=== PATIENT | male | born 1955 | race Caucasian/White ===

== ENCOUNTER 2016-12-07 14:25 | Day surgery (SDC) | payer OTHER ==
[~2016-12-07 14:25] MED LIST: DIPRIVAN 200 MG/20 ML IV ONE; Kenalog-40 IM ONE; Lactated Ringers IV ONE; Sensorcaine 0.25% 10 ML IJ ONE
--- NOTE | 2016-12-07 16:52 | XRAY ---
Indication: Left L3-S1 MBB. Intraoperative fluoroscopy was provided for 10 seconds. Single digital spot image submitted for interpretation demonstrates 4 posterior spinal needles with the tips projecting adjacent to the left L3-S1 superior facets. Correlate with intraoperative findings/report.
--- NOTE | 2016-12-07 16:55 | XRAY ---
10 seconds of fluoroscopy was used in surgery for a left MBB L3-S1.
== END 2016-12-07 16:20 | disposition home or self-care (01) ==
LOC: SDC-PAIN 14:25
PROVIDERS: ATTEND Pain Medicine Interventional Pain Medicine
DX: M54.5 Low back pain (principal); M46.1 Sacroiliitis, not elsewhere classified; M25.551 Pain in right hip; M51.36 Other intervertebral disc degeneration, lumbar region
CPT/HCPCS: 64493; 64494; 64495; 72020; 77003; J2704; J3301

== ENCOUNTER 2017-02-15 12:10 | Day surgery (SDC) | payer OTHER ==
[~2017-02-15 12:10] MED LIST changes: +Lactated Ringers 1,000 ML IV ONE; -Lactated Ringers IV ONE
--- NOTE | 2017-02-15 17:19 | XRAY ---
9 seconds fluoroscopy time in surgery for left side L2-5 MBB.
--- NOTE | 2017-02-17 02:40 | XRAY ---
Indication: Left L2-L5 MBB. Intraoperative fluoroscopy was provided for 9 seconds. Single digital spot image submitted for interpretation demonstrates 4 posterior spinal needles with the tips projected over the expected course of the left L2-L5 nerve roots. Correlate with intraoperative findings/report.
== END 2017-02-15 13:55 | disposition home or self-care (01) ==
LOC: SDC-PAIN 12:10
PROVIDERS: ATTEND Pain Medicine Interventional Pain Medicine
DX: M54.5 Low back pain (principal); M46.1 Sacroiliitis, not elsewhere classified; M47.816 Spondylosis without myelopathy or radiculopathy, lumbar region; M25.551 Pain in right hip
CPT/HCPCS: 64493; 64494; 64495; 72020; 77003; J2704; J3301

== ENCOUNTER 2022-03-23 11:47 | Day surgery (SDC) | payer OTHER ==
[2022-03-23] MEDS ORDERED: Marcaine Mpf 0.5% Vial 30 Ml IJ ONE (11:48)
[2022-03-23] MEDS ORDERED: XYLOCAINE-MPF 1% 5ML SDV IJ ONE (11:48)
[2022-03-23] MEDS ORDERED: Depo-Medrol 40 MG/ML IM ONE (11:48)
[2022-03-23] MEDS ORDERED: DIPRIVAN 200 MG/20 ML IV ONE (13:41)
[2022-03-23] MEDS ORDERED: Lactated Ringers 1,000 ML IV ONE (14:25)
--- NOTE | 2022-03-23 14:52 | XRAY ---
Indication: Left L4-S1 RFA. Intraoperative fluoroscopy provided for 27 seconds. 3 digital spot image submitted for interpretation demonstrates posterior needle tips projecting over the left L4-S1 nerve roots. Correlate with intraoperative findings/report.
--- NOTE | 2022-03-23 14:54 | XRAY ---
27 seconds of fluoroscopy was used in surgery for a left L4-S1 RFA.
== END 2022-03-23 14:18 | disposition home or self-care (01) ==
LOC: SDC-PAIN 11:47
PROVIDERS: ATTEND Psychiatry & Neurology Pain Medicine
DX: M47.816 Spondylosis without myelopathy or radiculopathy, lumbar region (principal); Z79.899 Other long term (current) drug therapy
CPT/HCPCS: 64635; 64636; 72100; 77002; J1030; J2704

== ENCOUNTER 2022-03-30 11:52 | Day surgery (SDC) | payer OTHER ==
[2022-03-30] MEDS ORDERED: XYLOCAINE-MPF 1% 5ML SDV IJ ONE (11:53)
[2022-03-30] MEDS ORDERED: Depo-Medrol 40 MG/ML IM ONE (11:53)
[2022-03-30] MEDS ORDERED: Marcaine Mpf 0.5% Vial 30 Ml IJ ONE (11:53)
[2022-03-30] MEDS ORDERED: DIPRIVAN 200 MG/20 ML IV ONE (14:20)
--- NOTE | 2022-03-30 15:17 | XRAY ---
Indication: Right L4-S1 RFA. Intraoperative fluoroscopy provided for 16 seconds. 3 digital spot image submitted for interpretation demonstrates posterior needle tips projecting over the expected right L4-S1 nerve roots. Correlate with intraoperative findings/report.
[2022-03-30] MEDS ORDERED: Lactated Ringers 1,000 ML IV ONE (16:27)
--- NOTE | 2022-03-30 16:35 | XRAY ---
16 seconds fluoroscopy time in surgery for right L4-S1 RFA.
== END 2022-03-30 14:50 | disposition home or self-care (01) ==
LOC: SDC-PAIN 11:52
PROVIDERS: ATTEND Psychiatry & Neurology Pain Medicine
DX: M47.816 Spondylosis without myelopathy or radiculopathy, lumbar region (principal); Z79.899 Other long term (current) drug therapy
CPT/HCPCS: 64635; 64636; 72100; 77002; J1030; J2704

== ENCOUNTER 2023-07-19 15:30 | Day surgery (SDC) | payer MEDICARE ==
[2023-07-19] MEDS ORDERED: Sodium Chloride 0.9(Preservative Free) 10 ML IJ ONE (15:31)
[2023-07-19] MEDS ORDERED: LIDOCAINE HCL 1% 50 MG/5 ML VL PF IJ ONE (15:31)
[2023-07-19] MEDS ORDERED: Decadron 4 MG INJ IV ONE (15:31)
[2023-07-19] MEDS ORDERED: MORPHINE SULFATE 2 MG INJ ONE (18:37)
[2023-07-19] MEDS ORDERED: Lactated Ringers 1,000 ML IV ONE (18:38)
--- NOTE | 2023-07-19 19:27 | XRAY ---
Indication: Cervical JO-ANN. Intraoperative fluoroscopy provided for 21 seconds. 2 digital spot image submitted for interpretation demonstrates posterior needle tip projecting just posterior to cervical thoracic junction. Small amount of contrast injected for needle tip placement. Correlate with intraoperative findings/report.
--- NOTE | 2023-07-20 09:43 | XRAY ---
21 seconds of fluoroscopy was used in surgery for a cervical JO-ANN.
== END 2023-07-19 18:59 | disposition home or self-care (01) ==
LOC: SDC-PAIN 15:30
PROVIDERS: ATTEND Psychiatry & Neurology Pain Medicine
DX: M54.12 Radiculopathy, cervical region (principal)
CPT/HCPCS: 62321; 72040; 77003; J1100; J2001; J2270; Q9966

== ENCOUNTER 2023-08-31 12:52 | Day surgery (SDC) | payer MEDICARE ==
[2023-08-31] MEDS ORDERED: Depo-Medrol 40 MG/ML IM ONE (12:53)
[2023-08-31] MEDS ORDERED: BUPIVACAINE 0.5% VIAL IJ ONE (12:53)
[2023-08-31] MEDS ORDERED: DIPRIVAN 200 MG/20 ML IV ONE (14:02)
--- NOTE | 2023-08-31 15:16 | XRAY ---
24 seconds of fluoroscopy was used in surgery for a right intra-articular shoulder and subacromial bursa injection.
[2023-08-31] MEDS ORDERED: Lactated Ringers 1,000 ML IV ONE (16:29)
--- NOTE | 2023-09-01 11:26 | XRAY ---
24 seconds of fluoroscopy was used in surgery for a right intra-articular shoulder and subacromial bursa injection.
== END 2023-08-31 14:26 | disposition home or self-care (01) ==
LOC: SDC-PAIN 12:52
PROVIDERS: ATTEND Psychiatry & Neurology Pain Medicine
DX: M75.51 Bursitis of right shoulder (principal); M19.011 Primary osteoarthritis, right shoulder; Z79.899 Other long term (current) drug therapy
CPT/HCPCS: 20610; 73030; 77002; J1030; J2704; Q9966

== ENCOUNTER 2023-10-18 11:38 | Day surgery (SDC) | payer MEDICARE ==
[2023-10-18] MEDS ORDERED: LIDOCAINE HCL 2% 100 MG/5 ML IJ ONE (11:39)
[2023-10-18] MEDS ORDERED: Lactated Ringers 1,000 ML IV ONE (13:52)
[2023-10-18] MEDS ORDERED: DIPRIVAN 200 MG/20 ML IV ONE (14:45)
--- NOTE | 2023-10-18 15:18 | XRAY ---
Indication: Right C2-C4 MBB. Intraoperative fluoroscopy provided 23 seconds. 2 digital spot image submitted for interpretation demonstrates posterior needle tips projecting over the expected right C2-C4 nerve roots. Correlate with intraoperative findings/report.
--- NOTE | 2023-10-18 16:42 | XRAY ---
23 seconds of fluoroscopy was used in surgery for a right C2-C4 MBB.
== END 2023-10-18 15:10 | disposition home or self-care (01) ==
LOC: SDC-PAIN 11:38
PROVIDERS: ATTEND Psychiatry & Neurology Pain Medicine
DX: M47.812 Spondylosis without myelopathy or radiculopathy, cervical region (principal)
CPT/HCPCS: 64490; 64491; 72040; 77002; J2704

== ENCOUNTER 2023-11-22 10:46 | Day surgery (SDC) | payer MEDICARE ==
[2023-11-22] MEDS ORDERED: BUPIVACAINE 0.5% VIAL IJ ONE (10:47)
[2023-11-22] MEDS ORDERED: DIPRIVAN 200 MG/20 ML IV ONE (12:15)
[2023-11-22] MEDS ORDERED: Versed 2 MG/2 ML Injection ONE (12:17)
[2023-11-22] MEDS ORDERED: Lactated Ringers 1,000 ML IV ONE (12:27)
--- NOTE | 2023-11-22 15:00 | XRAY ---
Indication: Right C2-C4 MBB. Intraoperative fluoroscopy provided for 13 seconds. 2 digital spot images submitted for interpretation demonstrates posterior needle tips projecting over the expected right C2-C4 nerve roots. Correlate with intraoperative findings/report.
--- NOTE | 2023-11-22 15:08 | XRAY ---
13 seconds of fluoroscopy was used in surgery for a right C2-C4 MBB.
== END 2023-11-22 12:50 | disposition home or self-care (01) ==
LOC: SDC-PAIN 10:46
PROVIDERS: ATTEND Psychiatry & Neurology Pain Medicine
DX: M47.812 Spondylosis without myelopathy or radiculopathy, cervical region (principal)
CPT/HCPCS: 64490; 64491; 72040; 77002; J2250; J2704

== ENCOUNTER 2023-12-20 13:38 | Day surgery (SDC) | payer MEDICARE ==
[2023-12-20] MEDS ORDERED: LIDOCAINE HCL 1% 50 MG/5 ML VL PF IJ ONE (13:39)
[2023-12-20] MEDS ORDERED: BUPIVACAINE 0.5% VIAL IJ ONE (13:39)
[2023-12-20] MEDS ORDERED: Decadron 4 MG INJ IV ONE (13:39)
[2023-12-20] MEDS ORDERED: Lactated Ringers 1,000 ML IV ONE (14:36)
[2023-12-20] MEDS ORDERED: DIPRIVAN 200 MG/20 ML IV ONE (14:45)
--- NOTE | 2023-12-20 17:35 | XRAY ---
Indication: Right C2-C4 RFA. Intraoperative fluoroscopy provided for 25 seconds. 3 digital spot image submitted for interpretation demonstrates posterior needle tips projecting over expected right C2-C4 nerve roots. Correlate with intraoperative findings/report.
--- NOTE | 2023-12-20 17:39 | XRAY ---
25 seconds of fluoroscopy was used in surgery for a right C2-C4 RFA.
== END 2023-12-20 15:25 ==
LOC: SDC-PAIN 13:38
PROVIDERS: ATTEND Psychiatry & Neurology Pain Medicine
DX: M47.812 Spondylosis without myelopathy or radiculopathy, cervical region (principal)
CPT/HCPCS: 64633; 64634; 72040; 77002; J1100; J2001; J2704

== ENCOUNTER 2024-07-31 13:47 | Day surgery (SDC) | payer MEDICARE, OTHER ==
[2024-07-31] MEDS ORDERED: Depo-Medrol 40 MG/ML IM ONE (13:48)
[2024-07-31] MEDS ORDERED: BUPIVACAINE 0.5% VIAL IJ ONE (13:48)
[2024-07-31] MEDS ORDERED: DIPRIVAN 200 MG/20 ML IV ONE (16:13)
[2024-07-31] MEDS ORDERED: MORPHINE SULFATE 2 MG INJ ONE (16:31)
--- NOTE | 2024-07-31 17:19 | XRAY ---
Indication: Right shoulder and subacromial bursa injection JO-ANN. Intraoperative fluoroscopy provided for 21 second. 3 digital spot image submitted for interpretation demonstrates needle tip projecting over right glenohumeral joint superiorly. Second needle tip subacromial. Small amount of contrast injected for both needle tip placement. Correlate with intraoperative findings/report.
--- NOTE | 2024-08-01 09:10 | XRAY ---
21 seconds of fluoroscopy was used in surgery for a right intra-articular shoulder and subacromial bursa injection.
== END 2024-07-31 16:50 ==
LOC: SDC-PAIN 13:47
PROVIDERS: ATTEND Psychiatry & Neurology Pain Medicine
DX: M19.011 Primary osteoarthritis, right shoulder (principal); M75.51 Bursitis of right shoulder
CPT/HCPCS: 20610; 73030; 77002; J2270; J2704; Q9966